=== PATIENT | female | born 1965 | race Caucasian/White ===

== ENCOUNTER → 2018-06-22 01:03 | Outpatient (CLI) | payer BC, SELFPAY ==
--- NOTE | 2018-06-22 09:24 | DI.REPORT_ITS ---
SYMPTOM/DIAGNOSIS: SCREENING, Z12.31, NORMAL GYNECOLOGICAL EXAM Z01.419 MAMMOGRAM: Mammograms were interpreted according to the usual protocol including computer analysis with CAD system, tomosynthesis and C view imaging. The breast tissue is heterogeneously radiodense which lowers the sensitivity of the study. Bilateral breast implants are demonstrated. There is no evidence of a dominant mass. A small rounded density in the central subareolar portion of the right breast is unchanged. There are no suspicious calcifications. There is no evidence of implant rupture. SUMMARY: No evidence of malignancy, Category 2-C. Yearly screening mammography is recommended,. MQSA ASSESSMENT OF FINDINGS: Negative with benign findings. Category 2. Patient will receive a letter notifying them of these results. Bi-RADS category C. The breasts are heterogeneously dense, which may obscure small masses.
== END ==
PROVIDERS: PCP General Practice; Visit Provider Obstetrics & Gynecology
DX: Z12.31 Encounter for screening mammogram for malignant neoplasm of breast (principal); Z98.82 Breast implant status; Z01.419 Encounter for gynecological examination (general) (routine) without abnormal findings
CPT/HCPCS: 77063; 77067

== ENCOUNTER 2018-07-21 14:50 | Outpatient (REF) | payer BC, SELFPAY ==
--- NOTE | 2018-07-21 11:00 | ENDO_PTH ---
PATIENT: Marylu Doyle LOC: [facility] U#:[id number] AGE/SX: 53/F ROOM: RE07/21/[address]: Juaquin Yoder MD : 1965 BED: DIS: 07/21/2018 SPEC #: [id number] RECD: 07/21/18 15:20 STATUS: CAN REQ #: [id number] ANA: 07/21/18 11:[address]: Juaquin Yoder DEPT: Surgical Specimen RECD BY: Jessica Lemus ENTERED: 07/21/18 15:20 SP TYPE: Endo OTHR DR: Gerry Gonzalez Tissues: 1 - ENDOCERVICAL BX/CURRETTE Procedures: GROSS AND MICRO LEVEL 4 Comments: [id number] (CREDIT PER [facility] - NO TISSUE IDENTIFIED)
== END 2018-07-21 15:10 ==
LOC: LBN 14:50
PROVIDERS: PCP General Practice; Visit Provider Obstetrics & Gynecology
DX: R87.611 Atypical squamous cells cannot exclude high grade squamous intraepithelial lesion on cytologic smear of cervix (ASC-H) (principal)
CPT/HCPCS: 88305

== ENCOUNTER 2018-08-28 14:21 | Outpatient (REF) | payer BC, SELFPAY ==
--- NOTE | 2018-08-28 13:50 | CER_PTH ---
PATIENT: Marylu Doyle LOC: [facility] U#:[id number] AGE/SX: 53/F ROOM: RE08/28/[address]: Lissa Jessica MD : 1965 BED: DIS: 08/28/2018 SPEC #: [id number] RECD: 08/28/18 16:59 STATUS: CAN REQ #: [id number] ANA: 08/28/18 13:[address]: Lissa Jessica DEPT: Surgical Specimen RECD BY: Jessica Lemus ENTERED: 08/28/18 17:00 SP TYPE: CER OTHR DR: Gerry Gonzalez Tissues: 1 - CERVICAL BIOPSY 2 - CERVICAL BIOPSY 3 - ENDOCERVICAL BX/CURRETTE Procedures: GROSS AND MICRO LEVEL 4 Comments: [id number]
== END 2018-08-28 14:41 ==
LOC: LBN 14:21
PROVIDERS: PCP General Practice; Visit Provider Obstetrics & Gynecology
DX: N85.8 Other specified noninflammatory disorders of uterus (principal); N83.8 Other noninflammatory disorders of ovary, fallopian tube and broad ligament; R87.610 Atypical squamous cells of undetermined significance on cytologic smear of cervix (ASC-US)
CPT/HCPCS: 88305

== ENCOUNTER 2019-07-19 10:21 | Outpatient (REF) | payer BC, SELFPAY ==
--- NOTE | 2019-07-19 10:00 | PAPFT_PTH ---
PATIENT: Marylu Doyle LOC: [facility] U#:[id number] AGE/SX: 54/F ROOM: RE07/19/[address]: Lissa Jessica MD : 1965 BED: DIS: 07/19/2019 SPEC #: [id number] RECD: 07/19/19 12:51 STATUS: CAN REQ #: [id number] ANA: 07/19/19 10:[address]: Lissa Jessica DEPT: [facility] Cytology RECD BY: Jessica Lemus ENTERED: 07/19/19 12:52 SP TYPE: PAPFT OTHR DR: Grery Gonzalez Tissues: 1 - CX/ENDOCX FOR PAP SMEARS Procedures: PAP THIN PREP/UVM Screening HPV DNA PROBE Comments: [id number]
== END 2019-07-19 10:41 ==
LOC: LBN 10:21
PROVIDERS: PCP General Practice; Visit Provider Obstetrics & Gynecology
DX: Z12.4 Encounter for screening for malignant neoplasm of cervix (principal); R87.610 Atypical squamous cells of undetermined significance on cytologic smear of cervix (ASC-US)
CPT/HCPCS: 88142; 87624

== ENCOUNTER 2019-08-16 02:46 | Outpatient (CLI) | payer BC, SELFPAY ==
--- NOTE | 2019-08-16 08:33 | DI.MAMMO_ITS ---
EXAM: MG MAMMO SCREENING 60 MIN DUR CLINICAL HISTORY: screening, Z12.31. TECHNIQUE: Mammograms were interpreted according to the usual protocol including computer analysis w [employer] CAD system, tomosynthesis and C-view imaging. COMPARISON: Comparison is made with prior examinations. FINDINGS: There are bilateral mammary implants. Routine views and implant displaced views were obtained. No ma ss or clumped microcalcification identified in either breast. Comparison with previous examinations including June 2018 shows no gross interval change in appearance in comparison with the previous st udies. IMPRESSION: No specific evidence of malignancy at this time. Routine screenings examinations are suggested at yea rly intervals in this age group according to the ACS ACR guidelines. Category 1. Breast density, sarbjit grover B. BI-RADS Cat 1 - Negative. Breast Density - Category B - Scattered areas of fibroglandular density.
== END 2019-08-16 03:06 ==
PROVIDERS: PCP General Practice; Visit Provider Obstetrics & Gynecology
DX: Z12.31 Encounter for screening mammogram for malignant neoplasm of breast (principal); Z98.82 Breast implant status
CPT/HCPCS: 77063; 77067

== ENCOUNTER 2020-08-11 09:45 | Outpatient (REF) | payer BC, SELFPAY ==
--- NOTE | 2020-08-11 09:00 | PAPFT_PTH ---
PATIENT: Marylu Doyle LOC: [facility] U#:[id number] AGE/SX: 55/F ROOM: RE08/11/[address]: AURELIO Bates : 1965 BED: DIS: 08/11/2020 SPEC #: [id number] RECD: 08/11/20 13:07 STATUS: CAN REMillicent #: [id number] ANA: 08/11/20 09:[address]: Lena De Leon DEPT: [facility] Cytology RECD BY: Jessica Lemus ENTERED: 08/11/20 13:07 SP TYPE: PAPFT OTHR DR: Gerry Gonzalez Tissues: 1 - CX/ENDOCX FOR PAP SMEARS Procedures: PAP THIN PREP/UVM Screening HPV DNA PROBE Comments: [id number]
== END 2020-08-11 10:05 ==
LOC: LBN 09:45
PROVIDERS: PCP General Practice; Visit Provider Nurse Practitioner Family
DX: Z12.4 Encounter for screening for malignant neoplasm of cervix (principal); Z11.51 Encounter for screening for human papillomavirus (HPV)
CPT/HCPCS: 88142; 87624

== ENCOUNTER 2020-09-10 02:44 | Outpatient (CLI) | payer BC, SELFPAY ==
--- NOTE | 2020-09-10 09:20 | DI.MAMMO_ITS ---
EXAM: MG MAMMO SCREENING 60 MIN DUR CLINICAL HISTORY: breast cancer screening,z12.39, implants TECHNIQUE: Mammograms were interpreted according to the usual protocol including computer analysis w [facility] CAD system, tomosynthesis and C-view imaging. COMPARISON: FINDINGS: There are bilateral mammary implants. Routine views and implant displaced views were obtained. No d ominant mass or clumped microcalcification is identified in either breast. The current examination i s compared with previous examinations including August 2019 and there has been no gross interval tricia nge in appearance in comparison with the prior studies. IMPRESSION: No specific evidence of malignancy at this time. Routine screening examinations are suggested at yea rly intervals in this age group according to the ACS ACR guidelines. BI-RADS Category 1 - Negative Breast Density - Category C - Heterogeneously dense
== END 2020-09-10 03:04 ==
PROVIDERS: PCP Internal Medicine; Visit Provider Nurse Practitioner Family
DX: Z12.31 Encounter for screening mammogram for malignant neoplasm of breast (principal); Z98.82 Breast implant status
CPT/HCPCS: 77063; 77067

== ENCOUNTER 2021-09-28 09:36 | Outpatient (REF) | payer BC, SELFPAY ==
--- NOTE | 2021-09-28 09:00 | PAPFT_PTH ---
PATIENT: Marylu Doyle LOC: [facility] U#:[id number] AGE/SX: 56/F ROOM: RE09/28/[address]: AURELIO Bates : 1965 BED: DIS: 09/28/2021 SPEC #: [id number] RECD: 09/28/21 13:14 STATUS: CAN REMillicent #: [id number] ANA: 09/28/21 09:[address]: Lena De Leon DEPT: [facility] Cytology RECD BY: Jessica Lemus ENTERED: 09/28/21 13:14 SP TYPE: PAPFT OTHR DR: Rylie Trivedi Tissues: 1 - CX/ENDOCX FOR PAP SMEARS Procedures: PAP THIN PREP/UVM Screening HPV DNA PROBE Comments: [id number]
== END 2021-09-28 09:37 | disposition home or self-care (01) ==
LOC: LBN 09:36
PROVIDERS: PCP Internal Medicine; Visit Provider Nurse Practitioner Family
DX: Z12.4 Encounter for screening for malignant neoplasm of cervix (principal); Z11.51 Encounter for screening for human papillomavirus (HPV); R87.820 Cervical low risk human papillomavirus (HPV) DNA test positive
CPT/HCPCS: 88142; 87624

== ENCOUNTER 2021-11-09 02:27 | Outpatient (CLI) | payer BC, SELFPAY ==
--- NOTE | 2021-11-09 07:30 | DI.MAMMO_ITS ---
Exam(s) MG MAMMO SCREENING 60 MIN DUR EXAM: MG MAMMO SCREENING 60 MIN DUR CLINICAL HISTORY: breast cancer screening,z12.39, implants. TECHNIQUE: Bilateral full field digital CC and MLO mammographic images were obtained with 3D tomosyn thesis and utilizing computer aided detection (CAD). COMPARISON: Prior mammograms dating back to 2012, the most recent being August 2020. FINDINGS: Again noted are bilateral retropectoral saline implants which appear intact. Both conventional and i mplant displacement views were performed. There are no new spiculated masses nor malignant appearing microcalcification groups. Benign microcalcifications again noted in the right breast. There is no significant architectural distortion nor skin thickening-retraction. IMPRESSION: No radiographic evidence of malignancy. No significant change compared to prior mammograms. Intact bilateral retropectoral saline implants again noted BI-RADS Category 1 - Negative Breast Density - Category C - Heterogeneously dense Breast density Category C or D implies that the patient has dense breast tissue. Dense breast tissue can make it harder to find cancer on a mammogram. Dense breast tissue is also associated with an incr eased risk of breast cancer. This information about the result of the mammogram report was provided to the patient to raise their awareness. Use this report when you speak with the patient about their risks for breast cancer, which includes their family history. At that time, you may recommend additional screening tests (Ultrasoun d or MRI) as these tests may add significant information. A negative radiographic report should not delay biopsy if a dominant or clinically suspicious mass is present. Up to ten percent of cancers are not identified on mammography. A negative report may reinforce clinical impression. Adenosis and dense breasts may obscure an underlying neoplasm. False positive reports average 6 to 10%. Patient will receive a letter notifying them of these results.
== END 2021-11-09 02:47 ==
PROVIDERS: PCP Internal Medicine; Visit Provider Nurse Practitioner Family
DX: Z12.31 Encounter for screening mammogram for malignant neoplasm of breast (principal); R92.8 Other abnormal and inconclusive findings on diagnostic imaging of breast
CPT/HCPCS: 77063; 77067

== ENCOUNTER 2022-10-22 10:37 | Outpatient (REF) | payer BC, SELFPAY ==
--- NOTE | 2022-10-22 09:30 | PAPFT_PTH ---
PATIENT: Marylu Doyle LOC: [facility] U#:[id number] AGE/SX: 57/F ROOM: RE10/22/[address]: Shawna Mo MD : 1965 BED: DIS: 10/22/2022 SPEC #: [id number] RECD: 10/22/22 12:26 STATUS: CAN REMillicent #: [id number] ANA: 10/22/22 09:[address]: Shawna Mo DEPT: [facility] Cytology RECD BY: Jessica Lemus ENTERED: 10/22/22 12:26 SP TYPE: PAPFT MATHEW DR: Rylie Trivedi Tissues: 1 - CX/ENDOCX FOR PAP SMEARS Procedures: PAP THIN PREP/UVM Screening HPV DNA PROBE Comments: [id number]
== END 2022-10-22 10:38 | disposition home or self-care (01) ==
LOC: LBN 10:37
PROVIDERS: PCP Internal Medicine; Visit Provider Obstetrics & Gynecology
DX: Z12.4 Encounter for screening for malignant neoplasm of cervix (principal); Z11.51 Encounter for screening for human papillomavirus (HPV)
CPT/HCPCS: 88142; 87624

== ENCOUNTER 2022-11-24 01:38 | Outpatient (CLI) | payer BC, SELFPAY ==
--- NOTE | 2022-11-24 07:00 | DI.MAMMO_ITS ---
Exam(s) MG MAMMO SCREENING 60 MIN DUR EXAM: MG MAMMO SCREENING 60 MIN DUR CLINICAL HISTORY: breast cancer screening,Z12.39,Z98.82 TECHNIQUE: Mammograms were interpreted according to the usual protocol including computer analysis w ith CAD system, tomosynthesis and C-view imaging. Implant displaced views were performed in addition to the routine views. COMPARISON: 2012 through 2020 FINDINGS: The breasts are composed of heterogeneously dense fibroglandular densities, Breast Density category C . There are bilateral subpectoral saline implants which appear intact. No suspicious masses or suspicious microcalcifications are seen. Nodule inferior right breast decrea sing in size over time. No skin thickening or abnormal axillary lymph nodes are seen. There has been no significant change from prior exams. IMPRESSION: BI-RADS Cat 2 - Benign Findings Yearly screening mammography is recommended. Breast Density Category C, heterogeneously Dense. The mammogram demonstrates the patient's breast tissue is dense. Dense breast tissue is very common a nd is not abnormal but dense breast tissue can make it harder to find cancer on a mammogram. Also, de nse breast tissue may increase breast cancer risk. This information about the result of the mammogram report was provided to the patient to raise their awareness. Use this report when you speak with the patient about their risks for breast cancer, which includes their family history. At that time, you may recommend additional screening tests (Ultrasound or MRI) as they might be useful based on their r isk. A negative radiographic report should not delay biopsy if a dominant or clinically suspicious mass is present. Up to ten percent of cancers are not identified on mammography. A negative report may reinforce clinical impression. Adenosis and dense breasts may obscure an underlying neoplasm. False positive reports average 6 to 10%.
== END 2022-11-24 01:58 ==
LOC: DI 01:38
PROVIDERS: PCP Internal Medicine; Visit Provider Obstetrics & Gynecology
DX: Z12.31 Encounter for screening mammogram for malignant neoplasm of breast (principal); Z98.82 Breast implant status; R92.8 Other abnormal and inconclusive findings on diagnostic imaging of breast
CPT/HCPCS: 77063; 77067

== ENCOUNTER 2023-11-29 10:48 | Outpatient (REF) | payer BC, SELFPAY ==
--- NOTE | 2023-11-29 10:20 | PAPFT_PTH ---
PATIENT: Marylu Doyle LOC: [facility] U#:[id number] AGE/SX: 58/F ROOM: RE11/29/[address]: Shawna Mo MD : 1965 BED: DIS: 11/29/2023 SPEC #: [id number] RECD: 11/29/23 13:10 STATUS: CAN REMillicent #: [id number] ANA: 11/29/23 10:[address]: Shawna Mo DEPT: [facility] Cytology RECD BY: Jessica Lemus ENTERED: 11/29/23 13:11 SP TYPE: PAPFT OTHR DR: Rylie Trivedi Tissues: 1 - CX/ENDOCX FOR PAP SMEARS Procedures: PAP THIN PREP/UVM Screening HPV DNA PROBE Comments: [id number]
== END 2023-11-29 10:49 | disposition home or self-care (01) ==
LOC: LBN 10:48
PROVIDERS: PCP Internal Medicine; Visit Provider Obstetrics & Gynecology
DX: Z01.419 Encounter for gynecological examination (general) (routine) without abnormal findings (principal)
CPT/HCPCS: 88142; 87624

== ENCOUNTER → 2023-12-09 00:56 | Outpatient (CLI) | payer BC, SELFPAY ==
--- NOTE | 2023-12-09 08:00 | DI.MAMMO_ITS ---
Exam(s) MG MAMMO SCREENING 60 MIN DUR EXAM: MG MAMMO SCREENING 60 MIN DUR CLINICAL HISTORY: breast cancer screening,Z98.82, IMPLANTS TECHNIQUE: Mammograms were interpreted according to the usual protocol including computer analysis w ith CAD system, tomosynthesis and C-view imaging. Implant displaced views were performed in addition to the routine views. COMPARISON: 2013 through 2022 FINDINGS: The breasts are composed of heterogeneously dense fibroglandular densities, Breast Density category C . There are bilateral saline breast implants which appear intact. No suspicious masses or suspicious microcalcifications are seen. No skin thickening or abnormal axillary lymph nodes are seen. There has been no significant change from prior exams. IMPRESSION: BI-RADS Category 1, Negative mammogram. Yearly screening mammography is recommended. Breast Density Category C, heterogeneously Dense. The mammogram demonstrates the patient's breast tissue is dense. Dense breast tissue is very common a nd is not abnormal but dense breast tissue can make it harder to find cancer on a mammogram. Also, de nse breast tissue may increase breast cancer risk. This information about the result of the mammogram report was provided to the patient to raise their awareness. Use this report when you speak with the patient about their risks for breast cancer, which includes their family history. At that time, you may recommend additional screening tests (Ultrasound or MRI) as they might be useful based on their r isk. A negative radiographic report should not delay biopsy if a dominant or clinically suspicious mass is present. Up to ten percent of cancers are not identified on mammography. A negative report may reinforce clinical impression. Adenosis and dense breasts may obscure an underlying neoplasm. False positive reports average 6 to 10%.
== END ==
PROVIDERS: PCP Internal Medicine; Visit Provider Obstetrics & Gynecology
DX: Z98.82 Breast implant status (principal); Z12.31 Encounter for screening mammogram for malignant neoplasm of breast
CPT/HCPCS: 77063; 77067

== ENCOUNTER 2024-12-04 10:31 | Outpatient (REF) | payer BC, SELFPAY ==
--- NOTE | 2024-12-04 09:45 | PAPFT_PTH ---
PATIENT: Marylu Doyle LOC: [facility] U#:[id number] AGE/SX: 59/F ROOM: RE12/04/[address]: Shawna Mo MD : 1965 BED: DIS: 12/04/2024 SPEC #: [id number] RECD: 12/04/24 12:56 STATUS: CAN REQ #: [id number] ANA: 12/04/24 09:[address]: Shawna Mo DEPT: [facility] Cytology RECD BY: Jessica Lemus ENTERED: 12/04/24 12:56 SP TYPE: PAPFT OTHR DR: Rylie Trivedi Tissues: 1 - CX/ENDOCX FOR PAP SMEARS Procedures: PAP THIN PREP/UVM Screening HPV DNA PROBE Comments: [id number] (HPV 16 & 18/45)
== END 2024-12-04 10:32 | disposition home or self-care (01) ==
LOC: LBN 10:31
PROVIDERS: PCP Internal Medicine; Visit Provider Obstetrics & Gynecology
DX: Z11.51 Encounter for screening for human papillomavirus (HPV) (principal); Z01.419 Encounter for gynecological examination (general) (routine) without abnormal findings
CPT/HCPCS: 88142; 87624

== ENCOUNTER 2025-01-31 01:02 | Outpatient (CLI) | payer BC, SELFPAY ==
--- NOTE | 2025-01-31 11:20 | DI.MAMMO_ITS ---
Exam(s) MG MAMMO SCREENING 60 MIN DUR EXAM: MG MAMMO SCREENING 60 MIN DUR CLINICAL HISTORY: breast cancer screening,implants,z12.31 TECHNIQUE: Mammograms were interpreted according to the usual protocol including computer analysis w [employer] CAD system, tomosynthesis and C-view imaging. COMPARISON: 2014 through 2023 FINDINGS: The breasts are composed of heterogeneously dense fibroglandular densities, Breast Density category C . No suspicious masses or suspicious microcalcifications are seen. Bilateral saline breast implants appear intact. No skin thickening or abnormal axillary lymph nodes are seen. There has been no significant change from prior exams. IMPRESSION: BI-RADS Category 1, Negative mammogram. Yearly screening mammography is recommended. Breast Density Category C, heterogeneously Dense. The mammogram demonstrates the patient's breast tissue is dense. Dense breast tissue is very common a nd is not abnormal but dense breast tissue can make it harder to find cancer on a mammogram. Also, de nse breast tissue may increase breast cancer risk. This information about the result of the mammogram report was provided to the patient to raise their awareness. Use this report when you speak with the patient about their risks for breast cancer, which includes their family history. At that time, you may recommend additional screening tests (Ultrasound or MRI) as they might be useful based on their r isk. A negative radiographic report should not delay biopsy if a dominant or clinically suspicious mass is present. Up to ten percent of cancers are not identified on mammography. A negative report may reinforce clinical impression. Adenosis and dense breasts may obscure an underlying neoplasm. False positive reports average 6 to 10%.
== END 2025-01-31 01:22 ==
LOC: DI 01:02
PROVIDERS: PCP Internal Medicine; Visit Provider Obstetrics & Gynecology
DX: Z12.31 Encounter for screening mammogram for malignant neoplasm of breast (principal); R92.333 Mammographic heterogeneous density, bilateral breasts
CPT/HCPCS: 77063; 77067